=== PATIENT | male | born 1990 | race Caucasian/White ===

== ENCOUNTER 2018-08-29 04:10 | Emergency (ER) | payer BC ==
[~2018-08-29] VITALS: Ht 172.7 cm; Wt 99.8 kg
[2018-08-29] MEDS ORDERED: AUGMENTIN125 MG/51 PO (04:24)
[2018-08-29] MEDS ORDERED: SUDAFED 12 HOU120 MG PO (04:24)
[2018-08-29] MEDS ORDERED: PROVENTIL HFA6.7 GM INH (05:25)
[2018-08-29] MEDS ORDERED: AZITHROMYCIN500 MG PO (05:25)
== END 2018-08-29 05:35 | disposition home or self-care (01) ==
LOC: ED 04:10
DX: J18.9 Pneumonia, unspecified organism (principal); Z88.2 Allergy status to sulfonamides; Z79.899 Other long term (current) drug therapy
CPT/HCPCS: 71046; 94640; 99283-25

== ENCOUNTER 2018-08-31 09:36 | Emergency (ER) | payer BC, OTHER ==
[~2018-08-31] VITALS: Ht 172.7 cm; Wt 99.8 kg
[~2018-08-31 09:36] MED LIST: AUGMENTIN125 MG/51 PO; AZITHROMYCIN500 MG PO; PROVENTIL HFA6.7 GM INH; SUDAFED 12 HOU120 MG PO
--- OUTSIDE RECORDS SUMMARY | 2018-08-31 09:42 | XMS ---
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 Layla VISIT COUNT (12 MO.) 2 [facility] TOTAL 2 NOTE: Visits indicate total known visits. ED/UCC VISIT TRACKING (12 MO.) 08/31/2018 09:37 [facility] TYPE: Emergency COMPLAINT: - DIAGNOSED PNEUMONIA 08/29/2018 04:10 [facility] TYPE: Emergency COMPLAINT: - CONGESTION INPATIENT VISIT TRACKING (12 MO.) No inpatient visits to display in this time frame [email or web address]
[2018-08-31] MEDS ORDERED: DOXYCYCLINE HY100 MG PO (12:24)
== END 2018-08-31 13:20 | disposition home or self-care (01) ==
LOC: ED 09:36
DX: J18.9 Pneumonia, unspecified organism (principal); Z88.2 Allergy status to sulfonamides; Z79.899 Other long term (current) drug therapy
CPT/HCPCS: 71045; 80053; 83605; 85025; 87040; 87502; 94640; 96361; 96365; 96375; 99283-25; J2405; J7030; J7060

== ENCOUNTER 2020-12-19 23:54 | Emergency (ER) | payer BC, OTHER ==
[~2020-12-19] VITALS: Ht 172.7 cm; Wt 105.0 kg
[~2020-12-19 23:54] MED LIST changes: +DOXYCYCLINE HY100 MG PO
[2020-12-20] MEDS ORDERED: NAPROSYN500 MG PO (00:09)
--- NOTE | 2020-12-20 17:26 | EKG ---
[facility] [address] [place], [place] [address] Signed Normal sinus rhythm with sinus arrhythmia Normal ECG No previous ECGs available Confirmed by JOAQUINA GONZALEZ DO ([id number]) on 12/20/2020 5:26:06 PM Electronically Signed By: JOAQUINA GONZALEZ DO 12/20/20 1726 PATIENT NAME: IAN TORRES Electrocardiogram DATE OF : 89 PHYSICIAN: JOAQUINA GONZALEZ DO REPORT #: [id number] REPORT IS CONFIDENTIAL AND NOT TO BE RELEASED WITHOUT AUTHORIZATION
== END 2020-12-20 01:08 | disposition home or self-care (01) ==
LOC: ED 23:54
DX: R07.89 Other chest pain (principal); Z88.2 Allergy status to sulfonamides
CPT/HCPCS: 71046; 80053; 84484; 85025; 93005; 93010; 99285-25

== ENCOUNTER 2021-05-15 00:20 | Emergency (ER) | payer OTHER ==
[~2021-05-15] VITALS: Ht 172.7 cm; Wt 105.0 kg
[~2021-05-15 00:20] MED LIST changes: +NAPROSYN500 MG PO
== END 2021-05-15 02:22 | disposition home or self-care (01) ==
LOC: ED 00:20
DX: U07.1 COVID-19 (principal); Z88.2 Allergy status to sulfonamides
CPT/HCPCS: 99284; C9803; U0003